=== PATIENT | female | born 1990 | race Caucasian/White ===

== ENCOUNTER → 2018-01-20 12:34 | Outpatient (CLI) | payer OTHER, SELFPAY ==
[2018-01-20 13:09] LABS: Add Manual Diff / Slide Review NO; Basophils Percent Auto 0.1 % (0-2); Eosinophils Percent Auto 0.6 % (2-4); Hematocrit 36.2 % (36-46); Hemoglobin 12.8 g/dL (12.0-16.0); Lymphocytes Percent Auto 27.3 % (25-40); Mean Corpuscular HGB Conc 35.3 % (30-36); Mean Corpuscular Hemoglobin 29.5 PG (26-34); Mean Corpuscular Volume 83.7 fL (80-100); Monocytes Percent Auto 5.2 % (3-14); Neutrophils Absolute Auto 8300 /uL (3000-5900); Neutrophils Percent Auto 66.8 % (50-75); Platelet Count 229 X10^3/uL (150-400); Red Blood Cell Count 4.32 X10^6/uL (4.0-5.2); Red Cell Distribution Width 12.4 % (11.6-14.8); White Blood Cell Count 12.4 X10^3/uL (4.5-11.0)
[2018-01-20 13:29] LABS: Appearance Urine UA CLEAR; Bilirubin Urine UA NEGATIVE (NEGATIVE); Color Urine UA YELLOW; Glucose Urine UA NEGATIVE (Normal); Ketones Urine UA NEGATIVE (NEGATIVE); Leukocyte Esterase Urine UA NEGATIVE (NEGATIVE); Nitrite Urine UA Negative (Negative); Occult Blood Urine UA NEGATIVE (Negative); Protein Urine UA NEGATIVE (Negative); Specific Gravity Urine UA 1.025 (1.000-1.035); Urobilinogen Urine UA 0.2 E.U./dL (0.2)
[2018-01-20 15:30] LABS: Hepatitis B Surface Antigen NEGATIVE s/c (NEGATIVE); Rubella Antibody IgG 21.2 IU/mL (>15)
[2018-01-20 15:47] LABS: HIV 1 and 2 Antibody NEGATIVE (NEGATIVE); Hep C Virus Ab w/Reflex Quant NEGATIVE s/c (NEGATIVE)
[2018-01-24 15:10] LABS: HSV 2 IGG AB < 0.90 index (< 0.90); HSV1IGG < 0.90 index (< 0.90)
[2018-01-27 14:16] LABS: Rapid Plasma Reagin NON-REACTIVE
== END ==
PROVIDERS: Visit Provider Obstetrics & Gynecology
DX: Z34.81 Encounter for supervision of other normal pregnancy, first trimester (principal); Z3A.01 Less than 8 weeks gestation of pregnancy
CPT/HCPCS: 36415; 80055; 81003; 86695; 86696; 86703; 86787; 86803; 86850; 86900; 86901; 87077; 87086

== ENCOUNTER 2019-04-19 13:53 | Emergency (ER) | payer OTHER, SELFPAY ==
[2019-04-19 13:58] VITALS: BP 116/75; PULSE 76; RESP 18; TEMP 36.5; O2SAT 100; BMI 23.8
--- NOTE | 2019-04-19 16:29 | ED_ITS ---
HPI - Allergic Reaction <MAURIZIO David - Last Filed: 04/19/19 23:59> General Chief complaint: Allergic Reaction Stated complaint: covered in hives Time Seen by Provider: 04/19/19 16:03 Source: patient Mode of arrival: Ambulatory Limitations: no limitations History of Present Illness HPI narrative: This is a 29 year old, non-smoker, who presents to ED with diffused itching and painful rash in right side neck, bilateral inner thighs, and axilla. Patient reports the rash started 2 weeks ago on her right-sided neck. Patient denies any exposure to new products such as detergent, lotion or clothes. Patient denies short of breath or oropharyngeal edema. She had used [id number] 1% cortisone cream and Zyrtec without much effect. Patient denies any similar symptoms in the past. Related Data Home Medications Medication Instructions Recorded Confirmed prenat.vits,lu,phg-zkmc-yyqln 1 tab PO DAILY 01/20/18 01/20/18 Previous Rx's Medication Instructions Recorded prednisone 50 mg PO DAILY 5 Days #5 tab 04/19/19 Allergies Allergy/AdvReac Type Severity Reaction Status Date / Time No Known Drug Allergies Allergy Verified 04/19/19 14:01 Review of Systems <MAURIZIO David - Last Filed: 04/19/19 23:59> Review of Systems Narrative: General: Denies fever, chills, fatigue, malaise, sweats. HEENT: Denies sinus pain, ear pain, sore throat, difficulty swallowing, dizziness. Respiratory: Denies dyspnea, cough, wheezing, hemoptysis, sputum. Cardiovascular: Denies chest pain, palpitations, orthopnea, edema. Gastrointestinal: Denies nausea, vomiting, abdominal pain, diarrhea, constipation, melena. : Denies dysuria, frequency, incontinence, hematuria, urinary retention. Musculoskeletal: Denies weakness, joint pain or bony pain. Skin: See HPI Neurologic: Denies weakness, headache, numbness, change in speech, confusion, seizures, incoordination. Psychiatric: No concerning psychosocial issues. 12-point review of systems is negative except for those stated above. Patient History <MAURIZIO David - Last Filed: 04/19/19 23:59> Medical History No significant past medical history (Acute) Surgical History H/O knee surgery (Acute) History of section (Acute) S/P tonsillectomy (Acute) Social History Smoking Status: Never smoker Smoking Status: Never smoker alcohol intake frequency: 0-2 drinks per day Substance Use Type: does not use Exam <MAURIZIO David - Last Filed: 04/19/19 23:59> Narrative Exam Narrative: General appearance: well developed, well nourished, in no acute distress. Head: normocephalic, atraumatic, no scalp lesions, non-tender. ENT: Bilateral auditory canals and tympanic membranes clear. Hearing grossly intact. Nose without bleeding, purulent discharge, septal hematoma or deviat ion. Turbinate without erythema or swelling. Facial sinuses nontender to palpate. Mucous membrane moist, no mucosal lesion. Throat without erythema, tonsillar hypertrophy or exudate. Uvula in midline, airway patent. Neck/Thyroid: neck supple, full range of motion, no visible masses or meningeal signs. No JVD, non-tender without lymphadenopathy. Skin: Diffused non-erythematic papules on R side posterior neck, bilateral axilla, bilateral inner thight w/o warmth, or drainage. no suspicious rashes, lesions over other visible areas. Warm and dry and appropriate color for ethnicity. Heart: no clubbing, no cyanosis, no edema. S1 and S2 normal. RRR w/o murmurs, clicks, or bruits. Lungs: Breathing even and unlabored. No stridor. No accessory muscles used. Able to speak in full sentences. Chest: normal shape and expansion. Abdomen: non-obese, non-distended. Neurologic: alert and oriented. Cognitive exam, WAISTLINE JOINER and PNS grossly intact on informal exam. Psych: good eye contact, normal affect. Initial Vital Signs Initial Vital Signs: Vital Signs Temperature 97.7 F 04/19/19 13:58 Pulse Rate 76 04/19/19 13:58 Respiratory Rate 18 04/19/19 13:58 Blood Pressure 116/75 04/19/19 13:58 Pulse Oximetry 100 04/19/19 13:58 <Renetta Andrew DO - Last Filed: 04/20/19 08:46> Initial Vital Signs Initial Vital Signs: Vital Signs Temperature 97.7 F 04/19/19 13:58 Pulse Rate 76 04/19/19 13:58 Respiratory Rate 18 04/19/19 13:58 Blood Pressure 116/75 04/19/19 13:58 Pulse Oximetry 100 04/19/19 13:58 Scores <Tai SuarezMAURIZIO lebron - Last Filed: 04/19/19 23:59> GCS Louise coma scale eye opening: Spontaneous Louise coma scale verbal response: Orientated Louise coma scale motor response: Obey commands Louise coma scale total score: 15 Course <Tai HenleyangElianaMAURIZIO Hess - Last Filed: 04/19/19 23:59> Vital Signs Vital signs: Vital Signs - 8 hr 04/19/19 16:32 Pulse Rate 65 Respiratory Rate 14 Blood Pressure 117/80 Pulse Oximetry 99 <Renetta Andrew DO - Last Filed: 04/20/19 08:46> Vital Signs Vital signs: Vital Signs - 8 hr 04/19/19 16:32 Pulse Rate 65 Respiratory Rate 14 Blood Pressure 117/80 Pulse Oximetry 99 MDM - Allergic Reaction <Tai SuarezMAURIZIO lebron - Last Filed: 04/19/19 23:59> Differential Diagnosis Differential diagnosis: Likely allergic reaction and contact dermatitis Medical Records Attestation: I reviewed the patient's medical records. MDM Narrative Medical decision making narrative: This is a 29-year-old female who presents to ED with 2 week duration of itching and painful generalized, diffused non erythematic rash in right posterior neck, bilateral axilla, bilateral inner thigh. Patient had tried [id number]-bitdurj hydrocortisone cream and Zyrtec. Lung sounds are clear to auscultate bilaterally. Patient does not have a respiratory difficulty. There is no swelling to oropharyngeal region. Patient discharged to home with a five-day short burst course of prednisone to use. Advised to continue with Zyrtec daily and use hlpa-upl-ihozflh Benadryl for acute itching at night for sleep. Patient advised avoid hot temperature water, bath to help with itching. Return precautions were discussed with the patient and verbalized understanding and agrees with the treatment plan. Discharge Plan Departure Patient Disposition: Home Clinical Impression: Rash and nonspecific skin eruption Discharge Date/Time: 04/19/19 16:32 Instructions: DI for Rash Activity Restrictions/Additional Instructions: You have been diagnosed with [itching and painful rash]. What to do: *Take your medications as directed. Continue to take her Zyrtec daily and 1% hydrocortisone cream as needed for itching and irritation. A short burst of prednisone for 5 day course has been ordered. This medication has been transmitted to [facility] in [place]. Please take zkhk-oig-pkujucn Benadryl as needed for itching. *Follow up with your primary care provider in 2-3 days, call for an appointment. Let them know you were seen in the ED and that we asked you to be seen in follow up. *Return to ED if you have any new, worsening, or concerning symptoms, such as [chest pain, breathing difficulty, swelling to tongue or lips, unable to tolerate fluids or any acute concerns.]. Prescriptions: New prednisone 50 mg tablet 50 mg PO DAILY 5 Days Qty: 5 RF: 0 No Action prenat.vits,lu,ayi-emnd-rjzoc tablet 1 tab PO DAILY RF: 0 Referrals: Contreras Lanza PA-C [[facility]] -
[2019-04-19 16:32] VITALS: BP 117/80; PULSE 65; RESP 14; O2SAT 99
== END 2019-04-19 16:32 | disposition home or self-care (01) ==
PROVIDERS: Emergency Provider Nurse Practitioner Family
DX: R21 Rash and other nonspecific skin eruption (principal)
CPT/HCPCS: 99281

== ENCOUNTER 2019-07-07 11:39 | Emergency (ER) | payer OTHER, SELFPAY ==
[2019-07-07 12:15] VITALS: BP 116/70; PULSE 57; RESP 18; TEMP 36.3; O2SAT 100; BMI 24.5
--- NOTE | 2019-07-07 13:48 | ED_ITS ---
HPI - Back Pain/Injury <MAURIZIO David - Last Filed: 07/07/19 15:10> General Chief Complaint: Back Pain/Injury Stated Complaint: BACK IS SPASMING REALLY BAD DOWN ARMS AND LEG RIGH Time Seen by Provider: 07/07/19 13:33 Source: patient Mode of arrival: Ambulatory Limitations: no limitations History of Present Illness HPI Narrative: This is a 29-year-old female, nonsmoker, who presents to ED with nontraumatic upper thoracic discomfort since 11:00 a.m. last night. Patient felt mild discomfort during the day but after she reached her arms up to put her hair in a bun, then she felt increasing pain. Patient reports pain radiating down to bilateral arms. Patient reports had similar discomfort in the past but without obvious injury. Patient reports pain increases with movement. Patient denies fever or rash. Related Data Home Medications Medication Instructions Recorded Confirmed prenat.vits,lu,tgm-jbdw-ylcjk 1 tab PO DAILY 01/20/18 01/20/18 Previous Rx's Medication Instructions Recorded cyclobenzaprine 10 mg PO BID PRN #14 tab 07/07/19 lidocaine 1 patch TOP DAILY #30 each 07/07/19 Allergies Allergy/AdvReac Type Severity Reaction Status Date / Time No Known Drug Allergies Allergy Verified 04/19/19 14:01 Review of Systems <MAURIZIO David - Last Filed: 07/07/19 15:10> Review of Systems Narrative: General: Denies fever, chills, fatigue, malaise, sweats. HEENT: Denies sinus pain, ear pain, sore throat, difficulty swallowing, dizziness. Respiratory: Denies dyspnea, cough, wheezing, hemoptysis, sputum. Cardiovascular: Denies chest pain, palpitations, orthopnea, edema. Gastrointestinal: Denies nausea, vomiting, abdominal pain, diarrhea, constipation, melena. : Denies dysuria, frequency, incontinence, hematuria, urinary retention. Musculoskeletal: See HPI Skin: Denies rash, skin lesions, or other. Neurologic: Denies weakness, headache, numbness, change in speech, confusion, seizures, incoordination. Psychiatric: No concerning psychosocial issues. 12-point review of systems is negative except for those stated above. Patient History <MAURIZIO David - Last Filed: 07/07/19 15:10> Social History Smoking Status: Never smoker Smoking Status: Never smoker alcohol intake frequency: 0-2 drinks per day Substance Use Type: does not use Exam <MAURIZIO David - Last Filed: 07/07/19 15:10> Narrative Exam Narrative: GEN: Alert, oriented x 3, well appearing and nourished, and in no acute distress. Head: Normal cephalic, atraumatic. No scalp or temporal tenderness, palpable mass or rash. EYES: Pupils are equal, round, and reactive to light and accommodation. Extraocular muscles are intact bilaterally. There is no subconjunctival hemorrhage, exudate and sclera non-icteric. ENT: Bilateral auditory canals and tympanic membranes clear. Hearing grossly intact. Nose without bleeding, purulent discharge or deviation. Facial sinuses nontender to palpate. Mucous membrane moist, no mucosal lesion. Throat without erythema, tonsillar hypertrophy or exudate. Uvula in midline, airway patent. Neck: Trachea in midline. No JVD, non-tender without lymphadenopathy. No masses or thyroid megaly. Supple, non-tender and no meningeal signs. CARDIAC: Normal regular rate and rhythm without murmurs, gallops, or rubs. No chest wall tenderness. No peripheral edema, cyanosis or pallor. Capillary refill is less than 2 seconds. RESPIRATORY: Lungs are clear to auscultate bilaterally. No cough, wheezes, rales, or rhonchi. No stridor, respiratory distress, increase work of breathing, or accessary muscle used. ABD: Abdomen soft, nontender and non-distended. No guarding or rebound tenderness to palpate. Bowel sounds are normal in all 4 quadrants. There is no palpable masses or organomegaly. EXT: Full painless ROM of all extremities with no loss of sensation, strength, effusion or edema. SKIN: Warm, dry, normal color for patient. No erythema, lesions or rash over visible areas. NEUROLOGICAL: Alert and oriented to place, time and person. Sensation and motor function intact bilaterally. No facial droops, dysphasia. PSYCHIATRIC: Good judgement and reason, without hallucinations, abnormal affect or abnormal behaviors during the examination. Initial Vital Signs Initial Vital Signs: Vital Signs Temperature 97.3 F L 07/07/19 12:15 Pulse Rate 57 L 07/07/19 12:15 Respiratory Rate 18 07/07/19 12:15 Blood Pressure 116/70 07/07/19 12:15 Pulse Oximetry 100 07/07/19 12:15 Back/Spine/Pelvis Back: normal to inspection, back tenderness, No crepitance, No CVA tenderness, No ecchymosis, No erythema, No mass and No warmth Thoracic/Lumbar Spine: thoracic and lumbar spine normal to inspection, No surgical scar(s) present, paraspinal tenderness (Left side greater than right), thoraco-lumbar ROM limited, thoracic spinal tenderness, No lumbar spinal tenderness, No straight leg raise positive and other (Pain increases with it upper extremity movements) <Elias Montemayor MD - Last Filed: 07/13/19 18:00> Initial Vital Signs Initial Vital Signs: Vital Signs Temperature 97.3 F L 07/07/19 12:15 Pulse Rate 57 L 07/07/19 12:15 Respiratory Rate 18 07/07/19 12:15 Blood Pressure 116/70 07/07/19 12:15 Pulse Oximetry 100 07/07/19 12:15 Scores <MAURIZIO David - Last Filed: 07/07/19 15:10> GCS Interior coma scale eye opening: Spontaneous Interior coma scale verbal response: Orientated Interior coma scale motor response: Obey commands Louise coma scale total score: 15 Course <MAURIZIO David - Last Filed: 07/07/19 15:10> Orders Ordered: Discontinued Medications Cyclobenzaprine HCl (Flexeril) 10 mg PO NOW ONE Stop: 07/07/19 13:57 Last Admin: 07/07/19 14:11 Dose: 10 mg Documented by: HARVINDER Ketorolac Tromethamine (Toradol) 15 mg IM NOW ONE Stop: 07/07/19 13:57 Last Admin: 07/07/19 14:15 Dose: 15 mg Documented by: HARVINDER Lidocaine (Lidoderm) 1 each TOP NOW ONE Stop: 07/07/19 13:57 Last Admin: 07/07/19 14:13 Dose: 1 each Documented by: HARVINDER Vital Signs Vital signs: Vital Signs - 8 hr 07/07/19 12:15 07/07/19 14:52 Temperature 97.3 F L Pulse Rate 57 L 60 Respiratory Rate 18 16 Blood Pressure 116/70 Blood Pressure [Right Arm] 115/69 Pulse Oximetry 100 100 <Elias Montemayor MD - Last Filed: 07/13/19 18:00> Orders Ordered: Discontinued Medications Cyclobenzaprine HCl (Flexeril) 10 mg PO NOW ONE Stop: 07/07/19 13:57 Last Admin: 07/07/19 14:11 Dose: 10 mg Documented by: HARVINDER Ketorolac Tromethamine (Toradol) 15 mg IM NOW ONE Stop: 07/07/19 13:57 Last Admin: 07/07/19 14:15 Dose: 15 mg Documented by: HARVINDER Lidocaine (Lidoderm) 1 each TOP NOW ONE Stop: 07/07/19 13:57 Last Admin: 07/07/19 14:13 Dose: 1 each Documented by: HARVINDER Vital Signs Vital signs: Vital Signs - 8 hr 07/07/19 12:15 07/07/19 14:52 Temperature 97.3 F L Pulse Rate 57 L 60 Respiratory Rate 18 16 Blood Pressure 116/70 Blood Pressure [Right Arm] 115/69 Pulse Oximetry 100 100 [facility] - Back Pain/Injury <MAURIZIO David - Last Filed: 07/07/19 15:10> Differential Diagnosis Differential diagnosis: Likely thoracic back pain Medical Records Attestation: I reviewed the patient's medical records. [facility] Narrative Medical decision making narrative: This is a 29-year-old female presents to ED with nontraumatic thoracic spine and para spine discomfort since yesterday after she reached up bilateral arms to put her hair in a bun. Patient's upper arm strength is equal and intact bilaterally with intact sensation. Normal radial pulse. Patient was medicated with IM injection of Toradol, Flexeril and lidocaine patch which is starting to help her discomfort. We discussed Flexeril medication precautions and patient discharged to home with lidocaine patch and Flexeril. Return precautions were discussed with the patient and verbalized understanding and in agreement with the treatment plan. X-ray was deferred since patient has no trauma to affected site or previous injury or surgery. Discharge Plan Departure Patient Disposition: Home Clinical Impression: Thoracic back pain Qualifiers: Chronicity: acute Back pain laterality: bilateral Qualified Code(s): M54.6 - Pain in thoracic spine Discharge Date/Time: 07/07/19 14:58 Instructions: DI for Back Strain or Sprain Activity Restrictions/Additional Instructions: You have been diagnosed with [nontraumatic thoracic back pain and spasm.]. What to do: *Take your medications as directed. You were medicated with IM Toradol, Flexeril, and Lidocaine patch in ED. please continue to take [id number] Tylenol and or Motrin as needed for discomfort as 1st line. Tylenol 650-1000 mg up to 3 to 4 times a day as needed. Ibuprofen 400 mg up to 3 times a day with food. Flexeril for muscle relaxant and this medication may cause drowsiness so please take precautions. Lidocaine patch on affected side which stays on for 12 and off for 12 hours. If your insurance does not cover this medication, please buy [id number] 4% and use it. You can use warm pack if this helps with her muscle relaxation. As soon as acute pain improves, star to with gentle stretching. *Follow up with your primary care provider in 2-3 days, call for an appointment. Let them know you were seen in the ED and that we asked you to be seen in follow up. *Return to ED if you have any new, worsening, or concerning symptoms, such as [chest pain, breathing difficulty, unable to tolerate fluids, weakness to her upper extremities, or any acute concerns]. Prescriptions: New cyclobenzaprine 10 mg tablet 10 mg PO BID PRN (Reason: muscle spasm) Qty: 14 RF: 0 lidocaine 5 % adhesive patch,medicated 1 patch TOP DAILY Qty: 30 RF: 0 No Action prenat.vits,lu,bps-xqgf-pqajf tablet 1 tab PO DAILY RF: 0 Referrals: Contreras Lanza PA-C [Primary Care Provider] -
[2019-07-07] MEDS: CYCLOBENZAPRINE 10 MG TABLET PO (14:11)
[2019-07-07] MEDS: LIDOCAINE PATCH 1 EACH ADH..PATCH TOP (14:13)
[2019-07-07] MEDS: KETOROLAC 60 MG/2 ML VIAL 15 MG IM (14:15)
[2019-07-07 14:52] VITALS: BP 115/69; PULSE 60; RESP 16; O2SAT 100
== END 2019-07-07 14:58 | disposition home or self-care (01) ==
PROVIDERS: Emergency Provider Nurse Practitioner Family; PCP Physician Assistant
DX: M54.6 Pain in thoracic spine (principal)
CPT/HCPCS: 96372; 99283; J1885

== ENCOUNTER 2019-08-16 14:34 | Emergency (ER) | payer OTHER, SELFPAY ==
[2019-08-16 14:40] VITALS: BMI 24.3
[2019-08-16 14:46] VITALS: BP 104/57; PULSE 77; RESP 14; TEMP 36.6; O2SAT 100
--- NOTE | 2019-08-16 15:10 | ED.URI ---
HPI - URI/Sore Throat <Geeta Vinson PA-C - Last Filed: 08/16/19 16:05> General Chief Complaint: Upper Respiratory Symptoms Stated Complaint: sinus pressure/lost voice/sore throat/ear pain x7 Time Seen by Provider: 08/16/19 14:57 Source: patient Mode of arrival: Ambulatory Limitations: no limitations History of Present Illness HPI Narrative: This is a well-appearing 29-year-old who presents to the emergency department with complaints of significant sinus pressure, sore throat and partial loss of her voice. She states that she has had a lot of sinus pressure for the last 10 days, and has been taking Zyrtec twice daily for this. She has had a lot of congestion with green mucus, but no cough. About 3 days ago her sinus pressure seemed to improve, and she developed a sore throat that was very severe, and had enough pain that she had difficulty talking. About a day later her sore throat improved slightly but her sinus pressure came back even worse. Her sinus pain is bad all the time, but if she leans forward all or her head goes down below her waist the pain becomes extremely intense. Today she states that she feels her voice has overall improved, and her sore throat may be slightly improved but her sinus pressure is severe. She has made a point to rest her voice, and has a toddler but has been trying to use her voice less for the last the last couple days. This morning when she woke up she also had redness and 1 of her eyes that seems to be improving somewhat. She also complains of itching and pain deep in both her ears and feels like there may be fluid in them. She has been taking Zyrtec twice daily, and Mucinex, as well as (recently) Tylenol sinus with little effect. She has seasonal allergies usually in the spring and summer when the pollen comes out, however this feels a lot different to her. She has a history of sinus infections, however none in the past year or so. She had a tonsillectomy as a child. She reports no other symptoms and has otherwise been well. She denies sick contacts, fever, respiratory distress, cough, myalgias, shortness of breath, chills, stiff neck, nausea, vomiting, diarrhea or any other symptoms. MD Complaint: sore throat, nasal congestion and sinus pain Onset (ago): day(s) (10) Duration: constant Severity: severe Severity scale (1-10): 5 Relieving factors: OTC cold medicine and rest Exacerbating factors: nothing Description of mucous: green Able to tolerate fluids by mouth: Yes Related Data Home Medications Medication Instructions Recorded Confirmed prenat.vits,lu,ewj-mpbd-dazzb 1 tab PO DAILY 01/20/18 01/20/18 Previous Rx's Medication Instructions Recorded cyclobenzaprine 10 mg PO BID PRN #14 tab 07/07/19 lidocaine 1 patch TOP DAILY #30 each 07/07/19 amoxicillin-pot clavulanate 1 tab PO BID 7 Days #14 tab 08/16/19 Allergies Allergy/AdvReac Type Severity Reaction Status Date / Time No Known Drug Allergies Allergy Verified 08/16/19 15:01 Review of Systems <Geeta Vinson PA-C - Last Filed: 08/16/19 16:05> Review of Systems Narrative: GENERAL: Denies chills, fatigue, malaise, fever, sweats. HEENT: Positive for sinus pain, ear pain, sore throat, difficulty swallowing (due to pain), negative for dizziness. RESPIRATORY: Denies dyspnea, cough, wheezing, hemoptysis, sputum. CARDIOVASCULAR: Denies chest pain, palpitations, orthopnea, edema, GASTROINTESTINAL: Denies nausea, vomiting, abdominal pain, diarrhea, constipation, melena. : Denies dysuria, frequency, incontinence, hematuria, urinary retention. MUSCULOSKELETAL: denies weakness, joint pain, or bony pain SKIN: Denies rash, skin lesions, or other NEUROLOGIC: Denies weakness, headache, numbness, change in speech, confusion, seizures, incoordination. PSYCHIATRIC: No concerning psychosocial issues. 12 point review of systems is negative except for those stated above Patient History <Geeta Vinson PA-C - Last Filed: 08/16/19 16:05> Social History Smoking Status: Never smoker Smoking Status: Never smoker alcohol intake frequency: holidays/special occasions only Substance Use Type: does not use Exam <GEORGIA Johnston Last Filed: 08/16/19 16:05> Narrative Exam Narrative: GENERAL: 29 year old patient appears stated age. Well-nourished, well-developed patient, in mild distress 2nd to sinus discomfort and throat pain. HEAD: Atraumatic. Normocephalic. EYES: Pupils equal round and reactive. Extraocular motions intact. No scleral icterus. No injection or drainage. ENT: Frontal and maxillary sinuses are extremely tender to percussion bilaterally, she has iwef-yk-uueytuyi tenderness bilaterally in the submandibular lymph nodes, without swelling, External ear canal is normal in appearance tympanic membranes are pearly vilchis with cone of light visible without erythema, injection, retraction, or swelling. Nose without bleeding, or purulent drainage. Throat without erythema, lesions, or swelling, uvula is midline, tonsills are surgically absent. Airway patent. NECK: Trachea midline. Non tender, there is no lymphadenopathy. CARDIOVASCULAR: Regular rate and rhythm without murmurs, gallops, or rubs. RESPIRATORY: Clear to auscultation. Breath sounds equal bilaterally. No wheezes, rales, or rhonchi. GASTROINTESTINAL: Abdomen soft, non-tender, nondistended. EXTREMITIES: No edema or joint tenderness. BACK: Nontender without deformity or crepitance. No flank tenderness. NEURO: AOx3. SKIN: No rash or erythema of visible areas Initial Vital Signs Initial Vital Signs: Vital Signs Temperature 97.9 F 08/16/19 14:46 Pulse Rate 77 08/16/19 14:46 Respiratory Rate 14 08/16/19 14:46 Blood Pressure 104/57 L 08/16/19 14:46 Pulse Oximetry 100 08/16/19 14:46 <Allan Rodarte MD - Last Filed: 08/16/19 17:29> Initial Vital Signs Initial Vital Signs: Vital Signs Temperature 97.9 F 08/16/19 14:46 Pulse Rate 77 08/16/19 14:46 Respiratory Rate 14 08/16/19 14:46 Blood Pressure 104/57 L 08/16/19 14:46 Pulse Oximetry 100 08/16/19 14:46 Course <Geeta Vinson PA-C - Last Filed: 08/16/19 16:05> Vital Signs Vital signs: Vital Signs - 8 hr 08/16/19 14:46 08/16/19 16:05 Temperature 97.9 F Pulse Rate 77 70 Respiratory Rate 14 16 Blood Pressure [Right Arm] 104/57 L Pulse Oximetry 100 99 <Allan Rodarte MD - Last Filed: 08/16/19 17:29> Vital Signs Vital signs: Vital Signs - 8 hr 08/16/19 14:46 08/16/19 16:05 Temperature 97.9 F Pulse Rate 77 70 Respiratory Rate 14 16 Blood Pressure [Right Arm] 104/57 L Pulse Oximetry 100 99 MDM - URI/Sore Throat <Geeta Vinson PA-C - Last Filed: 08/16/19 16:05> Differential Diagnosis Differential diagnosis: Likely sinusitis and pharyngitis Lab Data Labs: Point of Care Testing Rapid Strep A Negative MDM Narrative Medical decision making narrative: Is a generally well-appearing 29-year-old presents with sore throat for three days, and severe sinus pressure for 10 days. Centor score is 2, rapid strep was performed and is negative, her symptoms are more consistent with sinus infection, given the duration and the fact that they improved and then returned worse, which may warrant antibiotics. Differential diagnosis considered include: Strep throat, acute sinus infection, viral upper respiratory infection, bacterial upper respiratory infection, seasonal allergies, retropharyngeal abscess, peritonsillar abscess discharged home with prescription for Amoxicillin 875 BID x 7 days and PCP follow up, emergency return precautions provided. All questions answered. <Allan Rodarte MD - Last Filed: 08/16/19 17:29> Lab Data Labs: Point of Care Testing Rapid Strep A Negative Discharge Plan Departure Patient Disposition: Home Clinical Impression: Sinusitis Qualifiers: Sinusitis location: maxillary Chronicity: acute Recurrence: non-recurrent Qualified Code(s): J01.00 - Acute maxillary sinusitis, unspecified Pharyngitis Qualifiers: Pharyngitis/tonsillitis etiology: unspecified etiology Qualified Code(s): J02.9 - Acute pharyngitis, unspecified Discharge Date/Time: 08/16/19 16:07 Instructions: Sore Throat, DI for Sinusitis Activity Restrictions/Additional Instructions: There is no evidence of an emergent or life threatening illness at this time, but follow up with your doctor in 1-2 days is recommended nonetheless to continue to rule out serious underlying causes of your symptoms. Please call the office for an appointment. Please return to the Emergency Department for any worsening or persistent symptoms. Please take medications as directed. Your rapid strep test was negative, however based on the duration of your symptoms and your exam today I do think that you may have a bacterial sinusitis or (sinus infection). For this reason I have prescribed antibiotics (Amoxicillin as a paper prescription) which she should take as prescribed for the full course, even if you feel better before you finish. If you develop worsening sore throat, fevers, vision changes, dizziness, or any other symptoms of concern to you you should seek medical care or return to the emergency department. Prescriptions: New amoxicillin-pot clavulanate 875-125 mg tablet 1 tab PO BID 7 Days Qty: 14 RF: 0 No Action prenat.vits,lu,dcc-aemu-zyumo tablet 1 tab PO DAILY RF: 0 cyclobenzaprine 10 mg tablet 10 mg PO BID PRN (Reason: muscle spasm) Qty: 14 RF: 0 lidocaine 5 % adhesive patch,medicated 1 patch TOP DAILY Qty: 30 RF: 0 Referrals: Contreras Lanza PA-C [Primary Care Provider] - Stand Alone Forms: Work Release Note, Work/School Release <Allan Rodarte MD - Last Filed: 08/16/19 17:29> [facility] I was immediately available in the department for consultation. This documentation has been reviewed and I agree with assessment and plan. Supervised by Allan Rodarte MD
[2019-08-16 16:05] VITALS: PULSE 70; RESP 16; O2SAT 99
== END 2019-08-16 16:07 | disposition home or self-care (01) ==
PROVIDERS: Emergency Provider Student in an Organized Health Care Education/Training Program; PCP Physician Assistant
DX: J01.00 Acute maxillary sinusitis, unspecified (principal); J02.9 Acute pharyngitis, unspecified
CPT/HCPCS: 87880; 99282

== ENCOUNTER 2020-06-10 20:26 | Emergency (ER) | payer OTHER, SELFPAY ==
[2020-06-10 20:28] VITALS: BP 112/67; PULSE 68; RESP 16; TEMP 36.7; O2SAT 100
--- NOTE | 2020-06-10 20:48 | ED_ITS ---
HPI - Animal Bite General Chief Complaint: Animal Bite Stated Complaint: LEFT HAND INDEX FINGER CAT BITE AT WORK Time Seen by Provider: 06/10/20 20:41 Source: patient Mode of arrival: Ambulatory Limitations: no limitations History of Present Illness HPI narrative: Patient is a otherwise healthy 30-year-old dtltt-xacd-jytodssu female who is here for evaluation of a cat bite to her left index finger. 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 She is up-to-date on her tetanus. This was a domesticated kitten. She was told to come to the emergency department because her work wanted her evaluated. Related Data Home Medications Medication Instructions Recorded Confirmed prenat.vits,lu,ecm-fijj-shjni 1 tab PO DAILY 01/20/18 01/20/18 Previous Rx's Medication Instructions Recorded cyclobenzaprine 10 mg PO BID PRN #14 tab 07/07/19 lidocaine 1 patch TOP DAILY #30 each 07/07/19 amoxicillin-pot clavulanate 1 tab PO BID 10 Days #20 tab 06/10/20 [Augmentin] Allergies Allergy/AdvReac Type Severity Reaction Status Date / Time No Known Drug Allergies Allergy Verified 08/16/19 15:01 Review of Systems Constitutional Constitutional: Denies fever(s) Integumentary/Breasts Comments: Puncture wounds left index finger Hematologic/Lymphatic On Anticoagulants: No Allergic/Immunologic Allergic/Immunologic: Denies urticaria Patient History Medical History No significant past medical history Surgical History H/O knee surgery History of section S/P tonsillectomy Social History Smoking Status: Never smoker Smoking Status: Never smoker alcohol intake frequency: holidays/special occasions only Substance Use Type: does not use Exam Initial Vital Signs Initial Vital Signs: Vital Signs Temperature 98.0 F 06/10/20 20:28 Pulse Rate 68 06/10/20 20:28 Respiratory Rate 16 06/10/20 20:28 Blood Pressure 112/67 06/10/20 20:28 Pulse Oximetry 100 06/10/20 20:28 Const General: cooperative and comfortable Skin Other: Two very superficial puncture wounds to the left index finger radial aspect Neuro Sensory Exam: no sensory deficits noted Extrem Other: Full range of motion left index finger Course Vital Signs Vital signs: Vital Signs - 8 hr 06/10/20 20:28 Temperature 98.0 F Pulse Rate 68 Respiratory Rate 16 Blood Pressure 112/67 Pulse Oximetry 100 MDM - Animal Bite MDM Narrative Medical decision making narrative: Patient has very superficial puncture wounds to the left index finger without any signs of erythema. She is up-to-date on all of her immunizations to include tetanus. Because it is on her finger I did give her prescription for antibiotics however she is going to hold on this for the next couple days and if any redness develops she is going to start taking it as directed otherwise she will discarded. She was given return precautions and follow-up instructions. She expressed understanding and agreement. Discharge Plan Departure Patient Disposition: Home Clinical Impression: Bite by animal Instructions: DI for Cat Bite Activity Restrictions/Additional Instructions: Keep the prescription for antibiotics and start taking them as directed if any redness develops. Contact her primary provider for follow-up. Return to the emergency department for any new or worsening symptoms Prescriptions: New amoxicillin-pot clavulanate [Augmentin] 875-125 mg tablet 1 tab PO BID 10 Days Qty: 20 RF: 0 No Action prenat.vits,lu,csl-vyie-syrxu tablet 1 tab PO DAILY RF: 0 cyclobenzaprine 10 mg tablet 10 mg PO BID PRN (Reason: muscle spasm) Qty: 14 RF: 0 lidocaine 5 % adhesive patch,medicated 1 patch TOP DAILY Qty: 30 RF: 0
== END 2020-06-10 20:53 | disposition home or self-care (01) ==
PROVIDERS: Emergency Provider Emergency Medicine
DX: S61.251A Open bite of left index finger without damage to nail, initial encounter (principal); W55.01XA Bitten by cat, initial encounter; Y99.0 Civilian activity done for income or pay
CPT/HCPCS: 99281

== ENCOUNTER → 2022-08-19 11:32 | Outpatient (CLI) | payer OTHER, SELFPAY ==
--- NOTE | 2022-08-19 11:35 | DI.US.S_ITS ---
PROCEDURE: US OB <= 14 WEEKS FETUS INDICATIONS: DATES OUTSIDE/PRIOR DATING DATA: First dating scan (date and location): 08/19/2022. Estimated date of delivery (ANAIS) from first dating scan: 04/14/2023. TECHNIQUE: Real-time scanning was performed of the fetus and maternal pelvic organs, with image documentation. Endovaginal scanning was also performed to better visualize the fetus and maternal ovaries. COMPARISON: [facility], US, US OB <= 14 WEEKS FETUS, 01/30/2018, 17:03. FINDINGS: Embryo: [place]-rump length measures 4 mm corresponding to 6 weeks 0 days. Heart rate: Slightly visible cardiac motion seen with real-time examination but not detectable with M-mode tracing. Maternal organs: Right ovarian cyst measuring 1.9 cm. IMPRESSION: 1. Single intrauterine gestation with age estimated 6 weeks 0 days corresponding to ultrasound ANAIS of 04/14/2023. Slightly visible cardiac motion seen with real-time exam but not detectable with M-mode. Recommend short-term follow-up ultrasound in 1 week to assess viability. We strive to produce accurate, complete, and clear reports of imaging services. To assist us in improving patient care, this report was composed using standard report templates and voice recognition software. Therefore, it may contain abnormal punctuation, insertions and/or omissions. Occasional wrong-word or sound-alike substitutions may occur. Though we review the report and make efforts to correct it, we do recommend that the report be read carefully in proper context to recognize any text inaccuracies. Dictated by: Armando Bustos Yimi Interpreted: Ramy Jovel MD on 08/19/2022 at 12:41 Transcribed by: JYOTI on 08/19/2022 at 12:43 Approved by: Ramy Jovel M.D. on 08/19/2022 at 16:29
[2022-08-19 13:38] LABS: HCG Quantitative /Beta subunit 4021.9 mIU/mL
== END ==
PROVIDERS: Referring Provider Obstetrics & Gynecology; Visit Provider Obstetrics & Gynecology
DX: O34.81 Maternal care for other abnormalities of pelvic organs, first trimester (principal); N83.201 Unspecified ovarian cyst, right side; O99.891 Other specified diseases and conditions complicating pregnancy; R10.9 Unspecified abdominal pain; Z3A.01 Less than 8 weeks gestation of pregnancy
CPT/HCPCS: 36415; 76801; 76817; 84702; 93976

== ENCOUNTER 2022-08-21 11:09 | Emergency (ER) | payer OTHER, SELFPAY ==
[2022-08-21 11:11] VITALS: BP 119/69; PULSE 90; RESP 14; TEMP 36.6; O2SAT 98; BMI 21.0
--- NOTE | 2022-08-21 11:17 | DI.US.S_ITS ---
PROCEDURE: US OB <= 14 WEEKS FETUS INDICATIONS: BLEEDING AND CRAMPING OUTSIDE/PRIOR DATING DATA: Last menstrual period (LMP): Unknown. LMP-based estimated date of delivery (ANAIS): Unknown. First dating scan (date and location): 08/19/2022 Estimated date of delivery (ANAIS) from first dating scan: Not applicable TECHNIQUE: Real-time scanning was performed of the fetus and maternal pelvic organs, with image documentation. Endovaginal scanning was also performed to better visualize the fetus and maternal ovaries. COMPARISON: [facility], , OB <= 14 WEEKS FETUS, 08/19/2022, 12:10 FINDINGS: Within the lower uterine segment there is what appears to be a fluid collection with internal echoes. Previous yolk sac and crown-rump length is no longer visualized. No heart tones are identified. Maternal organs: Ovaries are not well seen although possible corpus luteal cyst may be present on the left.. IMPRESSION: Fluid within the lower uterine segment without visualization of intrauterine gestational sac and crown-rump length compared to prior exam. No heart tones are identified. Overall appearance is most suggestive of in progress. We strive to produce accurate, complete, and clear reports of imaging services. To assist us in improving patient care, this report was composed using standard report templates and voice recognition software. Therefore, it may contain abnormal punctuation, insertions and/or omissions. Occasional wrong-word or sound-alike substitutions may occur. Though we review the report and make efforts to correct it, we do recommend that the report be read carefully in proper context to recognize any text inaccuracies. Dictated by: Marisol Bailey M.D. on 08/21/2022 at 12:34 Approved by: Marisol Bailey M.D. on 08/21/2022 at 12:36
--- NOTE | 2022-08-21 11:37 | ED.GENADULT ---
HPI - General Adult General Chief complaint: Vaginal Bleeding Stated complaint: 6 weeks preg and bleeding heavily, in pain Time Seen by Provider: 08/21/22 11:18 Source: patient Mode of arrival: Ambulatory History of Present Illness HPI narrative: Patient is a 32-year-old female. She is a at approximately 6 weeks EGA. She did have a 1st trimester ultrasound a couple days ago ordered by her primary Ob which did confirm a intrauterine . She was not bleeding at that time. States she thought that maybe she had some dark blood yesterday but this morning had quite a bit of bright red blood. Also having some cramping and lower back pain. No urinary symptoms. No fevers. No vomiting. Related Data Home Medications Medication Instructions Recorded Confirmed prenat.vits,ul,ojd-loye-coftb 1 tab PO DAILY 01/20/18 08/09/22 Previous Rx's Medication Instructions Recorded hydrocodone 5 mg-acetaminophen 325 1 tab PO Q4-6H PRN pain #6 tabs 08/21/22 mg tablet Allergies Allergy/AdvReac Type Severity Reaction Status Date / Time lavender (Lavandula Allergy Intermediate Hives Verified 08/21/22 11:19 angustifolia) nickel Allergy Intermediate Rash Verified 08/21/22 11:19 Bleach (Sodium Hypochlorite) AdvReac Severe Difficulty Verified 08/21/22 11:19 Breathing Review of Systems Constitutional Constitutional: Reports system reviewed and no additional complaints, except as documented Gastrointestinal Gastrointestinal: Reports system reviewed and no additional complaints, except as documented Genitourinary Genitourinary: Reports system reviewed and no additional complaints, except as documented Musculoskeletal Musculoskeletal: Reports system reviewed and no additional complaints, except as documented Integumentary/Breasts Skin/Breast: Reports system reviewed and no additional complaints, except as documented Hematologic/Lymphatic On Anticoagulants: No Patient History Medical History Anxiety hemorrhage Surgical History (Updated 08/09/22 @ 09:35 by Zabrina Bose RN) H/O knee surgery History of section S/P tonsillectomy Family History (Updated 08/09/22 @ 09:36 by Zabrina Bose RN) Grandmother Lung cancer Social History marital status: unmarried,living together household members: significant other and children lives independently: Yes caregiver/support person: Yes housing: house pets and 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, 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) education level: college (some college, working on associate's degree) 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 current occupational exposures/hazards: Yes (several, but 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 ) special andie needs: No travel history: recent (domestic only) seatbelt use: always helmet use: No (Counseled to do so) water heater temp set < 120 deg: Yes working smoke detector in home: Yes fire extinguisher in home: Yes carbon monox detector in home: Yes firearms in home: No do you feel safe at home: Yes Smoking Status: Former smoker second hand exposure: Yes (s/o smokes, outside) alcohol intake: former (rarely when not ) substance use type: does not use during the past year weight has: decreased > 10 lbs (~20 lb, likely r/t stress and stopping OCP) well-balanced diet: daily or most days daily servings fruits/ve or more times/day caffeine: Yes (aware of 200mg limit, trying to cut back) Type(s) of exercise: other (physical job, active w/ kids) Smoking Status: Former smoker alcohol intake frequency: holidays/special occasions only Substance Use Type: does not use Exam Initial Vital Signs Initial Vital Signs: Vital Signs Temperature 97.9 F 08/21/22 11:11 Pulse Rate 90 08/21/22 11:11 Respiratory Rate 14 08/21/22 11:11 Blood Pressure 119/69 08/21/22 11:11 Pulse Oximetry 98 08/21/22 11:11 Oxygen Delivery Method Room Air 08/21/22 11:11 HENMT Head: normal to inspection and normocephalic Resp Effort & Inspection: normal respiratory effort Auscultation: clear to auscultation bilaterally Cardio Rate: regular rate Rhythm: regular rhythm GI Inspection: normal to inspection and non-distended Palpation: soft and tender (Lower abdomen) Skin General: no rashes or lesions noted Neuro General: patient alert, patient awake and moves all extremities Extrem General: capillary refill normal Course Orders Ordered: ED Orders 08/21/22 11:12 Urine Culture Stat Urine Microscopic Stat 08/21/22 11:17 US OB <= 14 weeks fetus Stat 08/21/22 11:20 ABO RH Type Stat Complete Blood Count AUTO DIFF Stat Comprehensive Metabolic Panel Stat HCG Quantitative /Beta subunit Stat Vital Signs Vital signs: Vital Signs - 8 hr 08/21/22 11:11 Temperature 97.9 F Pulse Rate 90 Respiratory Rate 14 Blood Pressure 119/69 Pulse Oximetry 98 Oxygen Delivery Method Room Air Medical Decision Making Lab Data Lab results reviewed: Yes I reviewed the patient's lab results. 08/21/22 11:20 08/21/22 11:20 Labs: Lab Results 08/21/22 08/21/22 08/21/22 Range/Units 11:12 11:20 11:20 WBC 5.7 (4.5-11.0) X10^3/uL RBC 3.95 L (4.0-5.2) X10^6/uL Hgb 11.9 L (12.0-16.0) g/dL Hct 34.9 L (36-46) % MCV 88.4 (80-100) fL MCH 30.3 (26-34) PG MCHC 34.2 (30-36) % RDW 13.2 (11.6-14.8) % Plt Count 209 (150-400) X10^3/uL Neut % (Auto) 63.0 (50-75) % Lymph % (Auto) 31.2 (25-40) % [place] % (Auto) 4.7 (3-14) % Eos % (Auto) 0.8 L (2-4) % Baso % (Auto) 0.3 (0-2) % Neut # (Auto) 3600 (7673-1401) /uL Lymph # (Auto) 1800 (7084-8411) /uL [place] # (Auto) 300 (0-900) /uL Eos # (Auto) 0 (0-450) /uL Baso # (Auto) 0 (0-100) /uL Sodium 140 (137-145) mmol/L Potassium 4.0 (3.4-5.1) mmol/L Chloride 105 (98-107) mmol/L Carbon Dioxide 27 (22-32) mmol/L BUN 9 (7-17) mg/dL Creatinine 0.62 (0.52-1.04) mg/dL Estimated GFR > 60 (>60) mL/min BUN/Creatinine Ratio 14.5 (6-22) Glucose 96 (70-100) mg/dL Calcium 9.4 (8.4-10.2) mg/dL Total Bilirubin 0.7 (0.2-1.3) mg/dL AST 21 (14-36) IU/L ALT 17 (<35) IU/L Alkaline Phosphatase 53 (38-126) U/L Total Protein 7.7 (6.3-8.2) g/dL Albumin 4.7 (3.5-5.0) g/dL Globulin 3.0 (1.7-4.1) g/dL Albumin/Globulin Ratio 1.6 (1.0-2.8) HCG, Quant 3449.8 mIU/mL Urine RBC 10-30/hpf H (0-5/HPF) Urine WBC 5-10/hpf H (0-5/HPF) Ur Squamous Epith Cells 1-5 /hpf (0-5/HPF) Amorphous Sediment 1+ Urine Bacteria Moderate (10-30) H (None) Ur Culture Indicated? Specimen cultured Blood Type 08/21/22 Range/Units 11:20 WBC (4.5-11.0) X10^3/uL RBC (4.0-5.2) X10^6/uL Hgb (12.0-16.0) g/dL Hct (36-46) % MCV (80-100) fL MCH (26-34) PG MCHC (30-36) % RDW (11.6-14.8) % Plt Count (150-400) X10^3/uL Neut % (Auto) (50-75) % Lymph % (Auto) (25-40) % [place] % (Auto) (3-14) % Eos % (Auto) (2-4) % Baso % (Auto) (0-2) % Neut # (Auto) (5383-5013) /uL Lymph # (Auto) (4065-7221) /uL [place] # (Auto) (0-900) /uL Eos # (Auto) (0-450) /uL Baso # (Auto) (0-100) /uL Sodium (137-145) mmol/L Potassium (3.4-5.1) mmol/L Chloride (98-107) mmol/L Carbon Dioxide (22-32) mmol/L BUN (7-17) mg/dL Creatinine (0.52-1.04) mg/dL Estimated GFR (>60) mL/min BUN/Creatinine Ratio (6-22) Glucose (70-100) mg/dL Calcium (8.4-10.2) mg/dL Total Bilirubin (0.2-1.3) mg/dL AST (14-36) IU/L ALT (<35) IU/L Alkaline Phosphatase (38-126) U/L Total Protein (6.3-8.2) g/dL Albumin (3.5-5.0) g/dL Globulin (1.7-4.1) g/dL Albumin/Globulin Ratio (1.0-2.8) HCG, Quant mIU/mL Urine RBC (0-5/HPF) Urine WBC (0-5/HPF) Ur Squamous Epith Cells (0-5/HPF) Amorphous Sediment Urine Bacteria (None) Ur Culture Indicated? Blood Type O Positive Urine Dip Bedside Urine Glucose Negative Bedside Urine Bilirubin - Negative Bedside Urine Ketone - Negative Urine Specific [place] 1.015 Bedside Urine Occult Blood +++ Bedside Urine pH 7.5 Bedside Urine Protein + 30 Bedside Urine Urobilinogen - Negative Bedside Urine Nitrite - Negative Bedside Urine Leukocytes + 70 Esterase Point of care testing: Urine Dip Bedside Urine Glucose Negative Bedside Urine Bilirubin - Negative Bedside Urine Ketone - Negative Urine Specific [place] 1.015 Bedside Urine Occult Blood +++ Bedside Urine pH 7.5 Bedside Urine Protein + 30 Bedside Urine Urobilinogen - Negative Bedside Urine Nitrite - Negative Bedside Urine Leukocytes + 70 Esterase Imaging Data US - OB: Radiologist's Impression: PROCEDURE:? US OB <= 14 WEEKS FETUS ? INDICATIONS:? BLEEDING AND CRAMPING ? OUTSIDE/PRIOR DATING DATA:? Last menstrual period (LMP):? Unknown.? LMP-based estimated date of delivery (ANAIS):? Unknown.? First dating scan (date and location):? 08/19/2022 Estimated date of delivery (ANAIS) from first dating scan:? Not applicable ? TECHNIQUE:? Real-time scanning was performed of the fetus and maternal pelvic organs, with image documentation.? Endovaginal scanning was also performed to better visualize the fetus and maternal ovaries.? ? COMPARISON:? [facility], [place], US OB <= 14 WEEKS FETUS, 08/19/2022, 12:10 ? FINDINGS:? ? Within the lower uterine segment there is what appears to be a fluid collection with internal echoes.? Previous yolk sac and crown-rump length is no longer visualized.? No heart tones are identified. ? Maternal organs:? Ovaries are not well seen although possible corpus luteal cyst may be present on the left.. ? ? ? IMPRESSION:? ? Fluid within the lower uterine segment without visualization of intrauterine gestational sac and crown-rump length compared to prior exam.? No heart tones are identified.? Overall appearance is most suggestive of in progress. MDM Narrative Medical decision making narrative: The ultrasound today is consistent with a miscarriage. Patient is Rh positive. Not anemic to the point requiring transfusion. Given her presenting symptoms we will wait for the urine culture to result before treating with any antibiotics. I did inform the patient of the findings of the ultrasound. She expressed understanding. Who discussed return precautions. She expressed understanding and agreement with plan. Discharge Plan Departure Patient Disposition: Home Clinical Impression: Incomplete miscarriage Instructions: DI for Miscarriage Activity Restrictions/Additional Instructions: I do recommend that on Tuesday you contact your OB provider for a follow-up. Return to the emergency department for fevers or bleeding multiple pads an hour for several hours in a row. Prescriptions: New hydrocodone-acetaminophen 5-325 mg tablet 1 tab PO Q4-6H PRN (Reason: pain) Qty: 6 0RF No Action prenat.vits,lu,lyg-tlnl-awpey tablet 1 tab PO DAILY Referrals: Miscellaneous,Doctor, [Primary Care Provider] - Stand Alone Forms: Patient Portal/API
[2022-08-21 11:45] LABS: Add Manual Diff / Slide Review NO; Basophils Absolute Auto 0 /uL (0-100); Basophils Percent Auto 0.3 % (0-2); Eosinophils Absolute Auto 0 /uL (0-450); Eosinophils Percent Auto 0.8 % (2-4); Hematocrit 34.9 % (36-46); Hemoglobin 11.9 g/dL (12.0-16.0); Lymphocytes Absolute Auto 1800 /uL (1100-4500); Lymphocytes Percent Auto 31.2 % (25-40); Mean Corpuscular HGB Conc 34.2 % (30-36); Mean Corpuscular Hemoglobin 30.3 PG (26-34); Mean Corpuscular Volume 88.4 fL (80-100); Monocytes Absolute Auto 300 /uL (0-900); Monocytes Percent Auto 4.7 % (3-14); Neutrophils Absolute Auto 3600 /uL (1500-7000); Platelet Count 209 X10^3/uL (150-400); Red Blood Cell Count 3.95 X10^6/uL (4.0-5.2); Red Cell Distribution Width 13.2 % (11.6-14.8); White Blood Cell Count 5.7 X10^3/uL (4.5-11.0)
[2022-08-21 11:45] LABS: Amorphous Sediment Urine 1+; Bacteria Urine Moderate (10-30); Culture Indicated Urine Specimen Cultured; RBC Urine 10-30/HPF (0-5/HPF); Squamous Epithelial Cell Urine 1-5 /HPF (0-5/HPF); WBC Urine 5-10/HPF (0-5/HPF)
[2022-08-21 11:48] LABS: Alanine Aminotransferase 17 IU/L (<35); Albumin 4.7 g/dL (3.5-5.0); Albumin Globulin Ratio 1.6 (1.0-2.8); Alkaline Phosphatase 53 U/L (38-126); Aspartate Aminotransferase 21 IU/L (14-36); BUN Creatinine Ratio 14.5 (6-22); Bilirubin Total 0.7 mg/dL (0.2-1.3); Blood Urea Nitrogen 9 mg/dL (7-17); Calcium 9.4 mg/dL (8.4-10.2); Carbon Dioxide 27 mmol/L (22-32); Chloride 105 mmol/L (98-107); Estimated Glomerular Filt Rate > 60 mL/min (>60); Glucose 96 mg/dL (70-100); HEMOLYSIS < 15 (0-50); Sodium 140 mmol/L (137-145); Total Protein 7.7 g/dL (6.3-8.2)
[2022-08-21 12:02] LABS: HCG Quantitative /Beta subunit 3449.8 mIU/mL
[2022-08-21 13:20] VITALS: BP 114/58; PULSE 82; RESP 14; O2SAT 99
== END 2022-08-21 13:21 | disposition home or self-care (01) ==
PROVIDERS: Emergency Provider Emergency Medicine
DX: O03.4 Incomplete spontaneous abortion without complication (principal); M54.50 Low back pain, unspecified
CPT/HCPCS: 36415; 76801; 76817; 80053; 81003; 81015; 84702; 85025; 86900; 86901; 87077; 87086; 87186; 99283; 99284

== ENCOUNTER 2023-08-06 17:20 | Emergency (ER) | payer OTHER, SELFPAY ==
[2023-08-06 17:24] VITALS: BP 108/74; PULSE 66; RESP 16; TEMP 36.7; O2SAT 100; BMI 22.1
--- NOTE | 2023-08-06 18:23 | ED_ITS ---
HPI - Back Pain/Injury <Bianca Beal PA-C - Last Filed: 08/06/23 18:52> General Chief Complaint: Back Pain/Injury Stated Complaint: WORK INJURY/PINCHED BACK Time Seen by Provider: 08/06/23 17:34 Source: patient History of Present Illness HPI Narrative: 33-year-old female here today for low back pain with sciatica to her left side. 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 Immediately after that she put the dog back on the table in the dog lunged again and patient I again tried to restrain the dog and she felt pain in her back at that time. States she has a history of low back pain with sciatica with her last flare-up being about 1 year ago. States she has had intermittent problems since being in the 10 years ago. She currently experiences tingling pain down her left posterior leg to the knee but no weakness and no difficulty ambulating. States in the past ibuprofen and muscle relaxers have been effective. She denies any bowel or bladder incontinence. No prior back surgeries. She has not currently on any medications. Related Data Home Medications Medication Instructions Recorded Confirmed prenat.vits,lu,ahu-wabz-zzavh 1 tab PO DAILY 01/20/18 08/09/22 Previous Rx's Medication Instructions Recorded hydrocodone 5 mg-acetaminophen 325 1 tab PO Q4-6H PRN pain #14 tabs 08/25/22 mg tablet cyclobenzaprine 7.5 mg tablet 7.5 mg PO TID PRN muscle spasm #30 08/06/23 tabs Allergies Allergy/AdvReac Type Severity Reaction Status Date / Time lavender (Lavandula Allergy Intermediate Hives Verified 08/06/23 17:24 angustifolia) nickel Allergy Intermediate Rash Verified 08/06/23 17:24 Bleach (Sodium Hypochlorite) AdvReac Severe Difficulty Verified 08/06/23 17:24 Breathing Review of Systems <Bianca Beal PA-C - Last Filed: 08/06/23 18:52> Review of Systems Narrative: GENERAL: Denies chills, fatigue, malaise, fever, sweats. HEENT: Denies sinus pain, ear pain, sore throat, difficulty swallowing, dizziness. RESPIRATORY: Denies dyspnea, cough, wheezing, hemoptysis, sputum. CARDIOVASCULAR: Denies chest pain, palpitations, orthopnea, edema, GASTROINTESTINAL: Denies nausea, vomiting, abdominal pain, diarrhea, constipation, melena. : Denies dysuria, frequency, incontinence, hematuria, urinary retention. MUSCULOSKELETAL:+ low back pain SKIN: Denies rash, skin lesions, or other NEUROLOGIC: Denies weakness, headache, numbness, change in speech, confusion, seizures, incoordination. PSYCHIATRIC: No concerning psychosocial issues. 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) education level: college (some college, working on associate's degree) 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 current occupational exposures/hazards: Yes (several, but 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 ) special andie needs: No travel history: recent (domestic only) seatbelt use: always helmet use: No (Counseled to do so) water heater temp set < 120 deg: Yes working smoke detector in home: Yes fire extinguisher in home: Yes carbon monox detector in home: Yes firearms in home: No do you feel safe at home: Yes Smoking Status: Former smoker second hand exposure: Yes (s/o smokes, outside) alcohol intake: former (rarely when not ) substance use type: does not use during the past year weight has: decreased > 10 lbs (~20 lb, likely r/t stress and stopping OCP) well-balanced diet: daily or most days daily servings fruits/ve or more times/day caffeine: Yes (aware of 200mg limit, trying to cut back) Type(s) of exercise: other (physical job, active w/ kids) Smoking Status: Former smoker alcohol intake frequency: holidays/special occasions only Substance Use Type: does not use Exam <Bianca Beal PA-C - Last Filed: 08/06/23 18:52> Narrative Exam Narrative: GENERAL: Well-developed, well-nourished, appears stated age. In no acute distress HEAD: Atraumatic. Normocephalic. EYES: Pupils equal round and reactive. Extraocular motions intact. No scleral icterus. No injection or drainage. ENT: Nose without bleeding, purulent drainage. Airway patent. NECK: Trachea midline. Non tender RESPIRATORY: Respiratory rate and effort normal EXTREMITIES: No edema or joint tenderness. BACK: Spine is midline and nontender with no step-offs, crepitus, or deformity. Range of motion is limited but she does have 50% flexion and about 50-60% rotation. Extension intact. Muscle strength of her lower extremities is normal and intact. No foot drop. Ambulating without assistance. Normal sensation and reflexes of lower extremities. TTP over left sciatic nerve NEURO: AOx3. SKIN: No rash or erythema of visible areas Initial Vital Signs Initial Vital Signs: Vital Signs Temperature 98.1 F 08/06/23 17:24 Pulse Rate 66 08/06/23 17:24 Respiratory Rate 16 08/06/23 17:24 Blood Pressure 108/74 08/06/23 17:24 Pulse Oximetry 100 08/06/23 17:24 Oxygen Delivery Method Room Air 08/06/23 17:24 <Alma Ballard DO - Last Filed: 08/07/23 11:09> Initial Vital Signs Initial Vital Signs: Vital Signs Temperature 98.1 F 08/06/23 17:24 Pulse Rate 66 08/06/23 17:24 Respiratory Rate 16 08/06/23 17:24 Blood Pressure 108/74 08/06/23 17:24 Pulse Oximetry 100 08/06/23 17:24 Oxygen Delivery Method Room Air 08/06/23 17:24 Course <GEORGIA Rich Last Filed: 08/06/23 18:52> Orders Ordered: Discontinued Medications Ketorolac Tromethamine (Ketorolac 30 Mg/Ml Vial) 30 mg IM NOW ONE Stop: 08/06/23 18:35 Last Admin: 08/06/23 18:40 Dose: 30 mg Documented By: TATO Vital Signs Vital signs: Vital Signs - 8 hr 08/06/23 17:24 Temperature 98.1 F Pulse Rate 66 Respiratory Rate 16 Blood Pressure 108/74 Pulse Oximetry 100 Oxygen Delivery Method Room Air <Alma Ballard DO - Last Filed: 08/07/23 11:09> Orders Ordered: Discontinued Medications Ketorolac Tromethamine (Ketorolac 30 Mg/Ml Vial) 30 mg IM NOW ONE Stop: 08/06/23 18:35 Last Admin: 08/06/23 18:40 Dose: 30 mg Documented By: TATO Vital Signs Vital signs: Vital Signs - 8 hr 08/06/23 17:24 Temperature 98.1 F Pulse Rate 66 Respiratory Rate 16 Blood Pressure 108/74 Pulse Oximetry 100 Oxygen Delivery Method Room Air MDM - Back Pain/Injury <Bianca Beal PA-C - Last Filed: 08/06/23 18:52> [facility] Narrative Medical decision making narrative: Patient presents with low back pain with sciatica to the left side. She has a history of the same which has flared up intermittently for the last 10 years since her time in the . Last flare-up was 1 year ago. She does not have any neurologic deficits, foot drop, incontinence, or any other red flag symptoms. She is tenderness over the left sciatic nerve. She is ambulating without assistance. No imaging is warranted today. Toradol 30 mg IM given and a prescription for Flexeril was given to patient. Patient instructed to take ibuprofen 600 mg along with the Flexeril as needed and discussed other pain relief modalities such as heating pad and gentle stretching/range of motion exercises. Follow up with PCP if not improving in 2 weeks. Discharge Plan Departure Patient Disposition: Home Clinical Impression: Acute back pain with sciatica Qualifiers: Laterality: left Qualified Code(s): M54.42 - Lumbago with sciatica, left side Instructions: DI for Back Pain With Sciatica Activity Restrictions/Additional Instructions: Thank you for choosing us to care for you today. You were evaluated for low back pain with sciatica on the left side. Based on your physical exam, no x- rays or other imaging is necessary today. You were given a medication called Toradol in the emergency department which should help with pain and inflammation. You were also given a prescription for muscle relaxers. Please take these as prescribed. Starting tomorrow you may take ibuprofen 600 mg every 6-8 hours as needed for pain. Please gently stretch and do [id number] exercises of your low back as tolerated. Avoid any have heavy lifting or twisting motions for now. If your pain is persistent for greater than 2 weeks please follow up with her primary care physician to discuss additional options such as physical therapy. If you experience any numbness in your foot, diffi culty walking due to weakness, difficulty controlling her bowel or bladder please return to the ER immediately. Prescriptions: New cyclobenzaprine 7.5 mg tablet 7.5 mg PO TID PRN (Reason: muscle spasm) Qty: 30 0RF No Action hydrocodone-acetaminophen 5-325 mg tablet 1 tab PO Q4-6H PRN (Reason: pain) Qty: 14 0RF prenat.vits,lu,gho-afqx-oewbc tablet 1 tab PO DAILY Referrals: Miscellaneous,Doctor, MD [Primary Care Provider] - Stand Alone Forms: Patient Portal/API ED Sign-out <Alma Ballard DO - Last Filed: 08/07/23 11:09> Cosign ED Attending Katerina Attestation: I was immediately available in the department for consultation.
[2023-08-06] MEDS: KETOROLAC 30 MG/ML VIAL IM (18:40)
[2023-08-06 19:11] VITALS: BP 110/75; PULSE 67; RESP 16; O2SAT 100
== END 2023-08-06 19:12 | disposition home or self-care (01) ==
PROVIDERS: Emergency Provider Physician Assistant
DX: M54.42 Lumbago with sciatica, left side (principal)
CPT/HCPCS: 96372; 99283; J1885